=== PATIENT | female | born 1970 | race Two or more races ===

== ENCOUNTER 2017-10-07 12:54 | Emergency (ER) | payer OTHER ==
[~2017-10-07] VITALS: Ht 170.2 cm; Wt 54.4 kg
[2017-10-07] MEDS ORDERED: Hydrogen Peroxide 473ml Bottle TOPIC ONE (13:45)
[2017-10-07] MEDS ORDERED: Hurricaine 20% Spray ORO ONE (13:45)
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
[2017-10-07] MEDS ORDERED: CHLORHEXIDINE473 ML MM (14:29)
[2017-10-07] MEDS ORDERED: AMOXICILLIN500 MG ORAL (14:29)
[2017-10-07] MEDS ORDERED: NORCO 5-325 TA1 EAC1 ORAL (14:29)
[2017-10-07 14:44] VITALS: BP 146/89
== END 2017-10-07 14:48 | disposition home or self-care (01) ==
LOC: EMR 14:40
DX: K05.219 Aggressive periodontitis, localized, unspecified severity (principal)
CPT/HCPCS: 10060; 99284